=== PATIENT | female | born 1995 | race American Indian/Alaskan Native ===

== ENCOUNTER 2020-12-20 13:02 | Outpatient (CLI) | payer MEDICAID ==
[2020-12-20 13:10] VITALS: BP 130/90
[2020-12-20] MEDS ORDERED: MORPHINE 2 MG/1 ML INJ IV SCH (14:00)
[2020-12-20 14:17] LABS: Basophils % (Auto) 0.2 % (0.0-1.8); Eosinophils % (Auto) 0.2 % (0.0-4.3); Hematocrit 33.5 % (30.3-42.9); Hemoglobin 11.3 gm/dl (10.1-14.3); Lymphocytes # (Auto) 1.3 K/mm3 (1.2-5.4); Lymphocytes % (Auto) 18.4 % (13.4-35.0); Mean Corpuscular HGB Conc 34 % (30-34); Mean Corpuscular Volume 81 fl (79-97); Monocytes # (Auto) 0.5 K/mm3 (0.0-0.8); Monocytes % (Auto) 7.1 % (0.0-7.3); Platelet Count 202 K/mm3 (140-440); Red Blood Count 4.13 M/mm3 (3.65-5.03); Red Cell Distribution Width 14.9 % (13.2-15.2)
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
== END 2020-12-20 17:23 | disposition home or self-care (01) ==
LOC: TRG 13:02 → APU 13:03 → TRG 17:23
PROVIDERS: ATTEND Obstetrics & Gynecology
DX: O47.1 False labor at or after 37 completed weeks of gestation (principal); Z3A.38 38 weeks gestation of pregnancy
CPT/HCPCS: 36415; 76815; 76819; 85025; 86850; 86900; 86901; 96365; 96366; J2270

== ENCOUNTER 2020-12-28 09:41 | Inpatient (IN) | payer MEDICAID ==
[2020-12-28] MEDS ORDERED: FAMOTIDINE 20 MG/2 ML INJ IV SCH (10:30)
[2020-12-28] MEDS ORDERED: METOCLOPRAMIDE 10 MG/2 ML INJ IV SCH (10:30)
[2020-12-28] MEDS ORDERED: BICITRA ORAL LIQD 30ML PO SCH (10:30)
[2020-12-28] MEDS: LACTATED RINGERS 1,000 ML IV SCH ×2 (10:55→11:56)
[2020-12-28] MEDS ORDERED: ceFAZolin/Water 2 GM/20 ML 2 GM/20 ML SYRINGE IV NR (11:00)
[2020-12-28] MEDS ORDERED: OXYTOCIN DRIP 30 UNITS/500 ML BAG IV SCH ×2 (11:00→13:00)
[2020-12-28] MEDS ORDERED: SODIUM CHLORIDE 0.9% 100 ML ONE (11:07)
[2020-12-28] MEDS ORDERED: PHENYLEPHRINE 10 MG/1 ML INJ SDV ONE (11:07)
[2020-12-28] MEDS ORDERED: dexAMETHasone 20 MG/5 ML VIAL ONE (11:07)
[2020-12-28] MEDS ORDERED: KETOROLAC 30 MG/1 ML INJ ONE (11:07)
[2020-12-28] MEDS ORDERED: ONDANSETRON 4 MG/2 ML INJ ONE (11:07)
[2020-12-28] MEDS ORDERED: BUPIVACAINE/PF (0.5%) 5 MG/1 ML 30 ML VIAL INFILTRATI ONE (11:07)
[2020-12-28 11:15] LABS: Basophils % (Auto) 0.6 % (0.0-1.8); Eosinophils % (Auto) 0.3 % (0.0-4.3); Hematocrit 34.2 % (30.3-42.9); Hemoglobin 11.5 gm/dl (10.1-14.3); Lymphocytes # (Auto) 1.5 K/mm3 (1.2-5.4); Lymphocytes % (Auto) 22.1 % (13.4-35.0); Mean Corpuscular HGB Conc 34 % (30-34); Mean Corpuscular Volume 81 fl (79-97); Monocytes # (Auto) 0.4 K/mm3 (0.0-0.8); Monocytes % (Auto) 5.4 % (0.0-7.3); Platelet Count 201 K/mm3 (140-440); Red Cell Distribution Width 15.3 % (13.2-15.2)
--- NOTE | 2020-12-28 11:18 | History and Physical Report ---
History of Present Illness Date of examination: 12/28/20 Date of admission: 12/28/20 09:41 Chief complaint: scheduled History of present illness: 25y/o @ 39+1 weeks presents for a scheduled delivery. The patient has had 2 prior cesareans. care initiated in the first trimester with [facility]. Her course has been complicated by STD exposure, sickle cell trait, HSV II. Patient denies any recent prodrome. She elects to have tubal ligation. Past History Past Medical History: no pertinent history Past Surgical History: section - Obstetrical History Expected Date of Delivery: 01/03/21 Actual Gestation: 39 Week(s) 1 Day(s) : 4 Para: 2 Hx # Term Pregnancies: 2 Number of Pregnancies: 0 Spontaneous Abortions: 0 Induced : 1 Number of Living Children: 2 Medications and Allergies Allergies Allergy/AdvReac Type Severity Reaction Status Date / Time No Known Allergies Allergy Unverified 12/20/20 13:35 Home Medications Medication Instructions Recorded Confirmed Last Taken Type One Daily Tablet 1 tab PO DAILY 12/28/20 12/28/20 12/27/20 History Active Meds: Active Medications Citric Acid/Sodium Citrate (Bicitra Oral Liqd 30ml) 30 ml PO ONCE JOSE MIGUEL Stop: 12/28/20 17:00 Famotidine (Famotidine 20 Mg/2 Ml Inj) 20 mg IV ONCE JOSE MIGUEL Stop: 12/28/20 17:00 Lactated Ringer's (Lactated Ringers) 1,000 mls @ 2,250 mls/hr IV PREOP JOSE MIGUEL Stop: 12/29/20 10:57 Oxytocin/Sodium Chloride (Pitocin/Ns 30 Unit/500ml) 30 units in 500 mls @ 0 mls/hr IV TITR JOSE MIGUEL; Protocol Cefazolin Sodium (Ancef/Sterile Water 2 Gm/20 Ml) 2 gm in 20 mls @ 80 mls/hr IV PREOP NR; Protocol Stop: 12/28/20 17:00 Metoclopramide HCl (Metoclopramide 10 Mg/2 Ml Inj) 10 mg IV ONCE JOSE MIGUEL Stop: 12/28/20 17:00 Review of Systems All systems: negative Genitourinary: no vaginal bleeding, no leakage of fluid - Vital Signs Vital signs: Vital Signs Pulse BP Pulse Ox 97 H 121/71 97 12/28/20 10:30 04/09/21 10:30 12/28/20 10:30 Temp Pulse Resp BP Pulse Ox 98.6 F 92 H 109/66 97 12/28/20 10:38 12/28/20 11:10 12/28/20 11:01 12/28/20 11:10 - Physical Exam Breasts: Positive: deferred Cardiovascular: Regular rate Lungs: Positive: Clear to auscultation Abdomen: Positive: normal appearance Results All other labs normal. Assessment and Plan - Patient Problems (1) Previous delivery affecting Current Visit: Yes Status: Acute Plan to address problem: admit for repeat and btl
--- NOTE | 2020-12-28 11:37 | Anesthesia Day of Surgery ---
Anesthesia Day of Surgery - Day of Surgery Patient Examined: Yes Patient H&P Reviewed: Yes Patient is NPO: Yes
--- NOTE | 2020-12-28 11:37 | Anesthesia Consultation ---
Anesthesia Consult and Med Hx Date of service: 12/28/20 - Airway Anesthetic Teeth Evaluation: Good ROM Head & Neck: Adequate Mental/Hyoid Distance: Adequate Mallampati Class: Class II Intubation Access Assessment: Probably Good - Pulmonary Exam CTA: Yes - Cardiac Exam Cardiac Exam: RRR - Pre-Operative Health Status ASA Pre-Surgery Classification: ASA2 Proposed Anesthetic Plan: Spinal - Pulmonary Hx Asthma: No COPD: No - Cardiovascular System Hx Hypertension: No - Central Nervous System Hx Seizures: No Hx Psychiatric Problems: No - Endocrine Hx Renal Disease: No Hx End Stage Renal Disease: No Hx Hypothyroidism: No Hx Hyperthyroidism: No - Hematic Hx Anemia: No Hx Sickle Cell Disease: No - Other Systems Hx Alcohol Use: No
--- NOTE | 2020-12-28 12:14 | Procedure Note ---
OB Delivery Note - Delivery Date of Delivery: 12/28/20 Surgeon: NORMA VEE Estimated blood loss: 500cc - Section Preop diagnosis: repeat Postop diagnosis: same section procedure: section, repeat low transverse, bilateral tubal ligation Disposition: PACU - Infant A at 1 minute: 9 at 5 minutes: 9 Gender: Male (Weight 8 pounds 1 ounce)
[2020-12-28] MEDS ORDERED: WITCH HAZEL/ GLYCERIN PAD TP PRN (12:15)
[2020-12-28] MEDS ORDERED: MORPHINE 4 MG/1 ML INJ IV PRN (12:15)
[2020-12-28] MEDS ORDERED: IBUPROFEN 600 MG TAB PO PRN (12:15)
[2020-12-28] MEDS ORDERED: LANOLIN/ZINC/DIMETHICONE (LANSINOH) 7 GM TP PRN (12:15)
[2020-12-28] MEDS ORDERED: NALOXONE 0.4 MG/1 ML INJ IV PRN (12:15)
[2020-12-28] MEDS ORDERED: KETOROLAC 30 MG/1 ML INJ IV PRN (12:15)
[2020-12-28] MEDS ORDERED: ACETAMINOPHEN 325 MG TAB PO PRN (12:15)
[2020-12-28] MEDS ORDERED: ONDANSETRON 4 MG/2 ML INJ IV PRN (12:15)
[2020-12-28] MEDS ORDERED: ceFAZolin/STERILE WATER 2 GM/20 ML SYRINGE IV ONE (12:18)
[2020-12-28] MEDS ORDERED: LACTATED RINGERS 1,000 ML ONE (12:36)
--- NOTE | 2020-12-28 12:59 | Progress Note ---
Spinal Anesthesia Block - Spinal Anesthesia Block Start Time: 12:10 Stop Time: 12:15 Performed by:: ARELIS LEE Procedure: Sitting, sterile chlorahexadine 0.5% prep/drape, 1% lidocaine skin local, 25G spinal needle + introducer at L3-4, + CSF, - Heme, [1.9 ml 0.5% bupivacaine + 10 mcg dexmedetomidine] injected, drape removed, patient positioned supine with left uterine displacement, and spinal level verified to be adequate prior to surgery. SRNA
[2020-12-28] MEDS ORDERED: HETASTARCH 6% 500 ML IV ONE (13:13)
--- NOTE | 2020-12-28 13:27 | Operative Report ---
Operative Report Operative Report: Date of surgery: December 28, 2020 Preoperative diagnosis: at 39+1 weeks; previous delivery; u ndesired fertility Postoperative diagnosis: Same as above Procedure: Repeat low transverse delivery and bilateral salpingectomy Surgeon: Holley Bagley M.D. Anesthesia: Regional Estimated blood loss: 500 mL Specimen: Bilateral tubes Findings: Liveborn male infant with Apgars of 9 and 9 weight 8 pounds 1 ounce Indications: 25-year-old -0-1-2 at 39+1 weeks who presents for repeat delivery and bilateral tubal ligation. Procedure: The patient was taken to the operating room and given regional anesthesia without complication. She was prepped and draped in a normal sterile fashion. A Pfannenstiel skin incision was made down to layer the fascia which was nicked in the midline extended laterally with the Bovie cautery. The superior aspect of the rectus fascia was grasped with Florence clamps x2 and the rectus muscles off sharply. This was done in inferior fashion as well. The rectus muscle midline and peritoneum entered bluntly. An Oyng retractor was then inserted. A bladder blade was placed. The vesicouterine peritoneum was then entered sharply with Metzenbaum scissors. A bladder flap was created digitally. A low transverse uterine incision was then made and extended digitally. There was clear fluid upon entry into the uterine cavity. The head was delivered through the incision with fundal pressure. The cord was clamped and cut x2 and infant was passed off to pediatrics. The placenta was then manually extracted. The uterus was then exteriorized and cleared of clots and debris. The uterine incision was then closed in a running locked fashion with 0 Vicryl additional imbricating stitch was applied for 2 layer closure. Attention was then turned to the patient's tube on the right. The mesosalpinx was isolated clamped with a Fabiana clamp. The tube was transected from the mesosalpinx and the ovary. A suture ligature stitch was performed for hemostasis. The entire tube was excised on the right. This was performed on the contralateral side. The posterior cul-de-sac was then copiously irrigated. The uterus was replaced back into the abdomen and pelvis were the gutters were then irrigated. The Yong retractor was then removed. The peritoneum was then reapproximated with 3-0 Vicryl incorporating the rectus muscle. The fascia was then closed with 0 Vicryl in a running fashion. The skin was then reapproximated with 3-0 Monocryl on a Rajat needle subcuticular fashion. Steri-Strips to place across the incision and a Crede procedures performed at the end of the surgery. A pressure dressing was applied to the incision. The surgery productive of a liveborn male with Apgars of 9 and 9 weight 8 pounds 1 ounce. The patient was taken to the recovery room in stable condition. All sponge laps and needle counts correct x2.
--- NOTE | 2020-12-28 13:50 | Progress Note ---
Regional Anesthesia Block - Regional Anesthesia Block Start Time: 13:35 Stop Time: 13:40 Performed By:: KETAN LEE Procedure: U/S guided bilateral tap block performed for post-operative pain requested by Dr. Salmeron. H&P & labs reviewed. Procedure explained, questions answered, consent obtained. Patient in the supine position with ekg, blood pressure cuff and pulse ox on and working in PACU. Timeout performed immediately before start of procedure. Probe placed in the mid-axillary line and the external oblique, internal oblique, and transverse abdominus muscles identified. Skin was cleansed with chlorahexadine 0.5% and allowed to dry. A 4" 20 G Thompson echogenic needle was advanced in plane until the tip was in the fascial plane between the internal oblique and the transverse abdominus. After negative aspiration 35 ml/side of [30 ml 0.5% Bupivacaine], [10 mg dexamethasone], and [40 ml sterile saline] was injected in 5 ml increments with negative aspiration in between. Patient tolerated procedure well. Ketan GARCIA
[2020-12-28] MEDS ORDERED: LACTATED RINGERS 1,000 ML IV ONE (14:22)
[2020-12-28] MEDS: D5W/LACTATED RINGERS 1,000 ML IV SCH ×2 (16:49→23:19)
[2020-12-28] MEDS ORDERED: MEASLES, MUMPS & RUBELLA 12,500 UNIT/0.5 ML VACCINE SUB-Q ONE (18:51)
[2020-12-29 01:11] LABS: Hematocrit 30.3 % (30.3-42.9); Hemoglobin 10.3 gm/dl (10.1-14.3)
[2020-12-29] MEDS: oxyCODONE /ACETAMINOPHEN 5-325MG TAB PO PRN ×5 (01:39→19:11)
[2020-12-29] MEDS ORDERED: TETANUS,DIPH,PERTUSS(ACELL) VACCINE 0.5 ML SYRINGE IM ONE (06:00)
[2020-12-29] MEDS: MAGNESIUM HYDROXIDE (MOM) ORAL LIQD UDC PO PRN ×2 (09:51→19:12)
--- NOTE | 2020-12-29 11:39 | Progress Note ---
Assessment and Plan POD 1 s/p ltcs. Doing well. Encourage ambulation. Plan for discharge on tomorrow Subjective - Subjective Date of service: 12/29/20 Interval history: POD 1 s/p LTCS Patient reports: appetite normal, voiding normally, pain well controlled, flatus, ambulating normally [place]: doing well Objective - Vital Signs Latest vital signs: Vital Signs Temp Pulse Resp BP BP Pulse Ox 12/29/20 09:22 16 12/29/20 09:14 97.8 F 88 18 102/60 98 12/29/20 05:12 20 12/29/20 04:00 98.6 F 65 16 118/72 12/29/20 01:39 20 12/29/20 00:12 98.0 F 74 18 106/60 95 12/28/20 21:34 20 12/28/20 20:32 98.0 F 85 18 98/53 96 12/28/20 15:16 19 97/47 12/28/20 14:50 97.5 F L 73 21 100/45 100 12/28/20 14:30 56 L 16 96/46 97 12/28/20 14:02 71 16 107/55 98 12/28/20 13:45 71 16 98/55 97 12/28/20 13:41 97.5 F L 80 17 106/62 96 12/28/20 13:35 87 16 110/52 96 12/28/20 13:29 97.6 F 73 17 105/49 96 Intake and Output 12/28/20 12/29/20 12/29/20 22:59 06:59 14:59 Intake Total 400 1752.5 Output Total 1350 3000 Balance -950 -1247.5 Intake: IV 812.5 D5lr 1,000 ml @ 125 mls/ 812.5 hr IV DIRECT JOSE MIGUEL Rx#: [id number] Oral 300 640 Intake, Free Water 100 300 Output: Urine 1350 3000 Indwelling Catheter 1350 1600 Void 1400 Other: Total, Intake Amount 300 200 Total, Output Amount 650 600 # Voids Indwelling Catheter 1 Void 1 - Exam Breasts: Present: deferred Cardiovascular: Present: Regular rate, Normal S1, Normal S2 Lungs: Present: Clear to auscultation, Normal air movement Abdomen: Present: normal appearance, soft, normal bowel sounds Vulva: both: normal Uterus: Present: normal, firm, fundal height below umbilicus Extremities: Present: normal Incision: Present: normal, dry, intact
--- NOTE | 2020-12-29 11:40 | Discharge Summary ---
Providers - Providers Date of Admission: 12/28/20 09:41 Date of discharge: 12/30/20 Attending physician: NORMA VEE Primary care physician: NORMA VEE Hospitalization Reason for admission: section Delivery: Procedure: repeat low transverse Procedure details: see op report Incision: normal, dry, intact Other procedures: none complications: none Discharge diagnosis: IUP at term delivered [place] baby: female Hospital course: unremarkable Condition at discharge: Good Disposition: DC-01 TO HOME OR SELFCARE Plan - Discharge Medications Prescriptions: Docusate Sodium [Colace] 100 mg PO BID #60 capsule Ibuprofen [Motrin] 800 mg PO Q8HR PRN #40 tablet PRN Reason: Pain, Moderate (4-6) Oxycodone HCl/Acetaminophen [Percocet 7.5/325 mg] 1 each PO Q6HR PRN #40 tablet PRN Reason: Pain - Provider Discharge Summary Activity: routine, no sex for 6 weeks, no heavy lifting 4 weeks, no strenuous exercise Diet: routine Instructions: routine Additional instructions: [] Smoking cessation referral if applicable(refer to patient education folder for contact #) [] Refer to [facility] Booklet Call your doctor immediately for: * Fever > 100.5 * Heavy vaginal bleeding ( >1 pad per hour) * Severe persistent headache * Shortness of breath * Reddened, hot, painful area to leg or breast * Drainage or odor from incision. * Keep incision clean and dry at all times and follow doctor's instructions regarding bathing/showering - Follow up plan Follow up: NORMA VEE MD [Primary Care Provider] - 7 Days
--- NOTE | 2020-12-29 15:27 | Post Anesthesia Evaluation ---
- Post Anesthesia Evaluation Patient Participated: Yes Airway Patent: Yes Stable Respiratory Function: Yes Nausea/Vomiting: No Temp > 96.8F: Yes Pain Manageable: Yes Adequeate Hydration: Yes Anesthesia Complications: No Block Receding Appropriately: Yes
[2020-12-30] MEDS: oxyCODONE /ACETAMINOPHEN 5-325MG TAB PO PRN ×3 (00:05→10:42)
[2020-12-30 09:30] VITALS: BP 115/75
== END 2020-12-30 16:30 | disposition home or self-care (01) | DRG 765 ==
LOC: APU 09:41 → OB 15:32
PROVIDERS: ADMIT Obstetrics & Gynecology; ATTEND Obstetrics & Gynecology
PROC: 10D00Z1 Extraction of Products of Conception, Low, Open Approach (ICD-10-PCS; principal; 2020-12-28)
PROC: 0UB70ZZ Excision of Bilateral Fallopian Tubes, Open Approach (ICD-10-PCS; 2020-12-28)
PROC: 3E0T3BZ Introduction of Anesthetic Agent into Peripheral Nerves and Plexi, Percutaneous Approach (ICD-10-PCS; 2020-12-28)
DX: O34.211 Maternal care for low transverse scar from previous cesarean delivery (principal); O98.32 Other infections with a predominantly sexual mode of transmission complicating childbirth; Z37.0 Single live birth; Z20.822 Contact with and (suspected) exposure to COVID-19; O99.02 Anemia complicating childbirth; A60.09 Herpesviral infection of other urogenital tract; D57.3 Sickle-cell trait; Z3A.39 39 weeks gestation of pregnancy; Z30.2 Encounter for sterilization
CPT/HCPCS: 36415; 85014; 85018; 85025; 86850; 86900; 86901; 88302; 90471; 90715; G0378; A6250; J0690; J1100; J1885; J2270; J2370; J2405; J2765; J3490; J7120; J7121; U0003